=== PATIENT | female | born 2000 | race African-American/Black ===

== ENCOUNTER 2020-10-06 04:00 | Emergency (ER) | payer MEDICAID ==
[~2020-10-06] VITALS: Ht 177.8 cm; Wt 72.7 kg
[2020-10-06 04:03] VITALS: BP 134/79
[2020-10-06] MEDS ORDERED: LORazepam 1 MG TABLET PO ONE (04:30)
== END 2020-10-06 04:49 | disposition left against medical advice (07) ==
LOC: EMS 04:01
DX: F41.9 Anxiety disorder, unspecified (principal); F14.90 Cocaine use, unspecified, uncomplicated
CPT/HCPCS: 99281; Z7502; Z7610